=== PATIENT | female | born 1930 | race Caucasian/White ===

== ENCOUNTER 2016-10-24 00:20 | Inpatient (IN) | payer OTHER, MEDICAID ==
[~2016-10-24] VITALS: Ht 157.5 cm; Wt 72.0 kg
--- NOTE | 2016-10-24 00:30 | NUR ---
RECEIVED A 86 Y/O F BIB [facility] FROM [facility] FOR GTUBE DISLODGEMENT SINCE 1300. TEMPORARY KELLEY/TUBE NOTED AT THE GTUBE SITE. PATIENT HAS BILATERAL UPPER EXTREMITY CONTRACTURES AND UNABLE TO MOVE GURINDER LOWER EXTREMITIES. 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 PATIENT PLACED IN CM, PULSE OX, BP CUFF. PT IS INCONTINENT OF STOOL AND URINE. MSE DONE BY DR BURCH. WILL CONTINUE TO MONITOR FOR SAFETY
--- NOTE | 2016-10-24 00:51 | NUR ---
DR BURCH AT THE BEDSIDE.
[2016-10-24] MEDS ORDERED: ASPIR 8181 MG PO (01:17)
[2016-10-24] MEDS ORDERED: BACLOFEN10 MG PO (01:18)
[2016-10-24] MEDS ORDERED: CATAPRES T0.3 MG/21 TD (01:20)
[2016-10-24] MEDS ORDERED: METOPROLOL TART25 M1 GT (01:22)
[2016-10-24] MEDS ORDERED: COSOPT OCUMETER10 ML OU (01:22)
[2016-10-24] MEDS ORDERED: LANTUS SOLOS100 U/M1 SQ (01:23)
[2016-10-24] MEDS ORDERED: MYRBETRIQ25 MG PO (01:24)
[2016-10-24] MEDS ORDERED: NOR10 GT (01:26)
[2016-10-24] MEDS ORDERED: ULTRAM50 MG GT ×2 (01:27→01:28)
[2016-10-24] MEDS ORDERED: PEPCID20 MG GT (01:27)
[2016-10-24] MEDS ORDERED: ZINC-220220 MG GT (01:30)
[2016-10-24] MEDS ORDERED: APAP500 MG GT (01:30)
[2016-10-24] MEDS ORDERED: NITROSTAT0.4 MG SL (01:32)
[2016-10-24] MEDS ORDERED: NOVOLIN 70/3010 ML SC (01:33)
[2016-10-24 01:52] LABS: CALCIUM 8.8 mg/dL (8.5-10.1); CARBON DIOXIDE 30.6 mmol/L (21-32); CHLORIDE SERUM 120 mmol/L (98-107); GLUCOSE SERUM 169 mg/dL (74-106); SODIUM SERUM 157 mmol/L (136-145)
[2016-10-24 01:56] LABS: ALKALINE PHOSPHATASE 106 U/L (46-116); ALT/SGPT 11 U/L (14-59); AST/SGOT 15 U/L (15-37); BILIRUBIN TOTAL 0.7 mg/dL (0.20-1.00); PHOSPHOROUS 3.6 mg/dL (2.5-4.9); TOTAL PROTEIN, SERUM 7.6 g/dL (6.4-8.2)
[2016-10-24 02:00] LABS: ALBUMIN 2.1 g/dL (3.4-5.0); CHOLESTEROL 96 mg/dL (<200); HDL CHOLESTEROL 31 mg/dL (40-60)
[2016-10-24 02:03] LABS: PLATELET COUNT 245 x10^3mcL (130-400); RED CELL DISTRIBUTION WIDTH 12.5 % (11.5-14.5)
[2016-10-24 02:40] LABS: BAND NEUTROPHIL 2 % (0-10); METAMYELOCTE 2 % (0-2); MONOCYTE 4 % (0-7); PLATELET MORPHOLOGY LARGE PLATELET SEEN; SEGMENTED NEUTROPHILS 87 % (37-75); rbc morphology (normal/abnorm) NORMAL (NORMAL)
--- NOTE | 2016-10-24 02:52 | NUR ---
CENTRIFUGAL STATION OPERATOR DAVINA CALL TO REPORT WBC IS 20.1. DR SANCHEZ ,RESIDENT MD BRADSHAW. CENTRIFUGAL STATION OPERATOR AT THE BEDSIDE DRAWING BLOOD CULTURES.
--- NOTE | 2016-10-24 02:53 | NUR ---
REPORT WAS GIVEN TO MARS, PATIENT TRANSPORTED TO ROOM 241B.
[2016-10-24 03:36] LABS: MAGNESIUM 3.1 mg/dL (1.8-2.4)
[2016-10-24 03:47] LABS: FREE T4 1.3 ng/dL (0.76-1.46); FREE THYROXINE INDEX 3.1 ug/dL (1.4-4.5); T4(THYROXINE) 8.1 ug/dL (4.7-13.3)
[2016-10-24 03:54] LABS: CHOLESTEROL/HDL RATIO 3.3
--- NOTE | 2016-10-24 04:00 | NUR ---
RECEIVED FROM ER VIA [facility] FACILITATED TO ASSIGNED BED, ADMITTED FOR DISLODGED GTUBE, STOMA SITE NON ACCESSIBLE, NO BLEEDING TO THE SITE, PT AWAKE APHASIC CONTRACTED DOESNT FOLLOW COMMANDS, RESPOND TO PAINFUL STIMULI, NO S/SX OF PAIN OR DISCOMFORTS, DIM LUNGS SOUND BILAT BASES, SCATTERED WARTS TO BODY PARTS, COCCYX OPEN WOUND CLEANSE WITH NS PAT DRY AND COVER WITH NON ADHESIVE DRESSING, WOUND SITES PICTURED AND COPY PLACED TO CHART, IV ACCESS @ PATENT NON INFIL, CHANGED DIAPER AND GOOD PERICARE RENDERED, IV 1/2 NS STARTED PER MD'S ORDER, ADMISSION ASSESSMENT COMPLETED, CONT TO MONITOR.
[2016-10-24 04:14] VITALS: BP 136/58
[2016-10-24 04:58] LABS: T3 TOTAL 0.68 ng/mL
--- NOTE | 2016-10-24 05:42 | NUR ---
IV ATB HANGED ORDERED, PT ASLEEP NO S/SX OF PAIN OR DISCOMFORTS, TELE #1 INPLACED SR WITH DEPRESSED TWAVE IN THE MONITOR.
[2016-10-24 07:14] LABS: PLATELET COUNT 205 x10^3mcL (130-400); RED CELL DISTRIBUTION WIDTH 14.2 % (11.5-14.5)
[2016-10-24 07:34] LABS: CALCIUM 8.4 mg/dL (8.5-10.1); CHLORIDE SERUM 121 mmol/L (98-107); GLUCOSE SERUM 163 mg/dL (74-106); SODIUM SERUM 158 mmol/L (136-145)
[2016-10-24 09:37] VITALS: BP 129/57
--- NOTE | 2016-10-24 10:15 | NUR ---
INSERTED 16 ENGLISH KELLEY ORDERED, URINE YELLOW AND A LITTLE CLOUDY, NO FOUL ODOR. SENT UA AND URINE CULTURE TO LAB ORDERED. APPLIED AN AIR MATTRESS TO PT'S BED, SHE HAS A WOUND ON HER COCCYX. DID ORAL CARE.
[2016-10-24 10:18] LABS: microscopic required? YES; urine erythrocyte 3+ (NEGATIVE)
[2016-10-24 10:33] LABS: BAND NEUTROPHIL 3 % (0-10); BASOPHIL 0 % (0-2); METAMYELOCTE 2 % (0-2); MONOCYTE 4 % (0-7); SEGMENTED NEUTROPHILS 85 % (37-75)
--- NOTE | 2016-10-24 10:36 | NUR ---
NON VERBAL, BLIND, LENS OPAQUE. NPO FOR GT INSERTION TODAY. OBTUNDED. BILATERAL ARMS CONTRACTED. BILATERAL FOOT DROPP. LUNGS DIMINISHED BILATERALLY. O2 SAT ON 2L NC 97%. BS'S ACTIVE TIMES 4. TURNING Q 2 HOURS. AIR MATTRESS APPLIED. KELLEY CATH 16 LATVIAN INSERTED AT 1000 AND UA AND URC SENT TO LAB. TRACE EDEMA BLE. IV SITE LEFT HAND CDI, PATENT. NO SIGNS OF DISCOMFORT. MEDICAL ROUNDS OCCURED WITH DR BARTON AND THE MEDICINE TEAM AT 0745. THE PLAN TODAY IS TO GET A GT INSERTED AND WOUND DEBRIDEMENT.
[2016-10-24 16:02] VITALS: Ht 157.5 cm; Wt 72.0 kg
[2016-10-24 17:38] VITALS: BP 110/42
--- NOTE | 2016-10-24 18:21 | NUR ---
AAO, BUT NON VERBAL AND BLIND. TELE # 1 SR. TURNING Q 2 HOURS. KELLEY CATH DRAINED 200 ML URINE, INCONTINENT AND WAS CHANGED TWICE. DRESSING TO WOUND WITH OPTIFOAM, THERAHONEY AND ISLAND DRESSING. THE DEBRIDEMENT WAS DONE BY DR HERNANDEZ, AROUND THE EDGES OF THE WOUND, THE CENTER WAS VERY TOUGH AND UNABLE TO REMOVE. WOUND CULTURE WAS SENT. ON AIR MATTRESS. IV SITE TO LEFT HAND PATENT, CDI. PT'S DTR CAME TODAY AND SIGNED THE CONSENTS.
--- NOTE | 2016-10-24 20:19 | NUR ---
EYES CLOSED RESPONSIVE TO TACTILE STIMULUS, APHASIC, NO S/SX OF PAIN OR DISCOMFORTS, ZIGGY GTUBE FEEDING DIABETIC RESOURCE @ 30CC/HR NO GASTRIC RESIDUAL INCREASE FEEDING TO 35 CC/HR WITH THE GOAL TO TOLERATED 45CC/HR, CONTINUOUS FEEDING, HOB ELEVATED, GTUBE STOMA SITE WITH INTACT DRESSING, TELE #1 SR WITH DEPRESSED TWAVE INT THE MONITOR, HR @ 80'S, IVF 1/2 NS INFUSING @ 50CC/HR @ LH IV ACCESS PATENT NON INFIL, REPOSITIONED PT TO THE SIDE, PRESSURE REDUCTION TO COCCYX WOUND WITH LOW AIRLOSS MATTRESS, BLE OFF LOADED WITH PILLOW, BLE AND BUE WITH SEVERE CONTRACTION, 02 @ 2L/MIN NC SATURATING 98% NO DISTRESS DIM LUNGS SOUND AT THE BASES, CONTACT ISOL PREC, F/C INPLACED YELLOW URINE OUTPUT SHIFT ASSESSMENT DONE, CONT TO MONITOR.
[2016-10-24 21:29] VITALS: BP 113/47
--- NOTE | 2016-10-24 22:10 | NUR ---
NOTED PT MOANING RESTLESS WITH FACIAL GRIMACING NO DISTRESS HAS VERY DRY ORAL MUCOSA, ORAL CARE PROVIDED, TRAMADOL VIA GTUBE GIVEN PER PRN ORDER, REPOSITIONED TO COMFORT, CONT TO MONITOR.
--- NOTE | 2016-10-25 00:48 | NUR ---
PT ASLEEP NO MOANING, HOB ELEVATED, ZIGGY GTUBE FEEDING WELL, TITRATED FEEDING RATE WITH GOAL OF 45CC/HR, IVF INFUSING WELL REPOSITIONED ROUTINELY, CONT TO MONITOR.
[2016-10-25 05:05] VITALS: BP 135/48
--- NOTE | 2016-10-25 06:35 | NUR ---
TOLERATED GTUBE FEEDING, NO GASTRIC RESIDUAL NO NAUSEA OR VOMITING, TITRATED UP FEEDING RATE TO 40CC/HR GOAL OF 45CC/HR ZIGGY, HOB ELEVATED ON ASPIRATION PREC, REPOSITIONED TO COMFORT, GOOD ORAL CARE PROVIDED, ORAL MUCOSA DRY AND CRUSTED CONT TO MONITOR.
[2016-10-25 07:22] LABS: PLATELET COUNT 185 x10^3mcL (130-400); RED CELL DISTRIBUTION WIDTH 13.9 % (11.5-14.5)
[2016-10-25 07:24] LABS: BASOPHIL % 0 % (0-2)
[2016-10-25 07:35] LABS: CARBON DIOXIDE 31.9 mmol/L (21-32); CHLORIDE SERUM 119 mmol/L (98-107); CREATININE SERUM 0.9 mg/dL (0.6-1.0); GLUCOSE SERUM 183 mg/dL (74-106); SODIUM SERUM 155 mmol/L (136-145)
--- NOTE | 2016-10-25 08:00 | NUR ---
REEIVED PT IN BED APHASIC. RESP EVEN AND UNLABORED WITH DIMINISHED BREATHSOUNDS TO BILAT BASES, ON RT PROTOCOL. NO S/SX OF CP/PRESSURE. NO EDEMA NOTED, IVF AT 50ML/HR TO LT HAND. ABD SOFT, OBESE, NONTENDER WITH +BS. S/P GT PLACEMENT, DONE YESTERDAY WITH ONGOING GT FEEDING DIABETICSRESOURCE AT 40ML/HR WITH TARGET RATE OF 45ML/HR WITH H2O BOLUS OF 100ML/HR. KELLEY CATH TO GRAVITY WITH YELLOW URINE. PT IS BEDBOUND TOTAL CARE WITH CONTRACTURES TO BUE AND FOOT DROP TO BLE. PT TURNED Q2HRS WITH HEELS OFF LOADED, ON AIRLOSS MATTRESS. PT IS S/P DEBRIDEMENT OF WOUND TO COCCYX WITH DRSG IN PLACE CDI. WITH ECCHYMOSIS TO BUE. LT HEEL NOTED WITH DRY HEALING ULCER NO OPEN WOUND NOTED. LT FOOT WITH MULTIPLE SCATTERED DRY SCABS TO LOWER FOOT. RT HEEL WITH DARKEN DISCOLORATION NOTED. CONTACT ISO MAINTAINED. CALL LIGHT IN REACH, NEEDS ANTICIPATED. BED IN LOW POSITION WITH BEDRAILS X2 UP.
--- NOTE | 2016-10-25 08:00 | NUR ---
DR. HERNANDEZ MADE AWARE OR CRITICAL MICRO REPORTING OF +MRSA NARES. TO ORDER TX.
[2016-10-25 08:58] VITALS: BP 122/49
--- NOTE | 2016-10-25 13:00 | NUR ---
PT TOLERATING FEEDING NO RESIDUAL. FEEDING INCREASED TO 45ML/HR ORDERED. WILL CONT TO MONITOR.
[2016-10-25 14:45] VITALS: BP 127/45
--- NOTE | 2016-10-25 16:26 | NUR ---
DAUGHTER AT BEDSIDE UPDATED INQUIRED ABOUT D/C PLAN. DR. HERNANDEZ CALLED PER MD PLAN IS FOR PT TO BE D/C'D TOMORROW WITH PROPER WOUND CARE INSTRUCTIONS. DAUGHTER UPDATED ON POC, NO FURTHER CONCERNS AT THIS TIME.
[2016-10-25 17:40] VITALS: BP 129/52
--- NOTE | 2016-10-25 18:05 | NUR ---
PT RESTING COMFORTABLY AT THIS TIME. NO S/SX OF DISCOMFORT. IVF INFUSING. KELLEY CATH TO GRAVITY. PT REPOSITIONED Q2HRS WITH HEELS OFF LOADED. PT TOLERATED INCREASE TO FEEDING CURRENTLY AT 45ML/HR NO RESIDUAL NOTED. CALL LIGHT IN REACH NEEDS ANTICIPATED.
--- NOTE | 2016-10-25 19:26 | NUR ---
SHIFT REASSESSMENT DONE.PATIENT ON CONTACT ISOLATION,NARES,TOTAL CARE.O2 AT 2 LITERS MASK HUMIDIFIER.PATIENT CONTRACTED EXT.REPOSITIONED FOR COMFORT.TOTAL CARE.IVF AT 50 CC/ HOUR.L HAND.TELE 1 SR. HAS GT FEEDING,DIABETA,RESOURCE.TOLERATING WELL.KELLEY INTACT.MOANS AT TIMES.CALL LITE IN REACH.
[2016-10-25 21:03] VITALS: BP 141/67
--- NOTE | 2016-10-25 21:12 | NUR ---
ALL PM MEDS GIVEN THRU GT TUBE,ALSO EYEDROPS OU.ATB SCHEDULED.GT FEEING CONTINOUS,TOLERTING WELL.
--- NOTE | 2016-10-25 22:16 | NUR ---
PATIENT GIVEN DOYLE WILLIAMSON,ZEE WHEN YOU REPOSITIONED HER,GOOD SKIN CARE GIVEN,COCCYX DECUB.
[2016-10-25 22:21] VITALS: BP 133/49
--- NOTE | 2016-10-26 02:56 | NUR ---
REPOSITIONED FOR COMFORT,GT FEEDING CONTINOUS,TOLERATING WELL.
--- NOTE | 2016-10-26 05:15 | NUR ---
COMFORT,REPOSITIONED,ALL EXT REMAINS CONTRACTED.GOOD SKIN CARE PROVIDED.
[2016-10-26 06:22] VITALS: BP 148/50
[2016-10-26 07:19] LABS: PLATELET COUNT 176 x10^3mcL (130-400); RED CELL DISTRIBUTION WIDTH 14.3 % (11.5-14.5)
[2016-10-26 07:25] LABS: BASOPHIL % 0 % (0-2)
--- NOTE | 2016-10-26 07:40 | NUR ---
RECEIVED PT IN NO ACUTE DISTRESS. APHASIC. RESP EVEN AND UNLABORED ON 2L NC WITH HUMIDIFIER. RT PROTOCOL. NO PAIN NOTED AT THIS TIME. CONTRACTED TO BUE AND BLE. ON AIR MATTRESS. PT REPOSITIONED TO R SIDE. BLE OFFLOADED WITH PILLOWS. DRESSING TO COCCYX C/D/I. G TUBE IN PLACE WITH DIABETASOURCE INFUSING AT 45 ML/HR WITH FWF 100 ML EVERY 4 HOURS. HOB ELEVATED. IVF INFUSING. BED IN LOWEST POSITION, CALL LIGHT WITHIN REACH. WILL CONTINUE TO MONITOR.
[2016-10-26 07:50] LABS: CALCIUM 7.8 mg/dL (8.5-10.1); CARBON DIOXIDE 28.1 mmol/L (21-32); CHLORIDE SERUM 114 mmol/L (98-107); CREATININE SERUM 0.9 mg/dL (0.6-1.0); GLUCOSE SERUM 257 mg/dL (74-106); MAGNESIUM 2.6 mg/dL (1.8-2.4); PHOSPHOROUS 3.3 mg/dL (2.5-4.9); POTASSIUM SERUM 4.3 mmol/L (3.5-5.1); SODIUM SERUM 150 mmol/L (136-145)
[2016-10-26 10:39] VITALS: BP 165/50
--- NOTE | 2016-10-26 12:00 | NUR ---
PT HAD SOFT BM. CLEANED AND MADE COMFORTABLE. DRESSING TO SACRUM APPLIED ORDERED, PICTURE TAKEN AND PLACED IN CHART. DR. HERNANDEZ AWARE. PT REPOSITIONED TO L SIDE. WILL CONTINUE TO MONITOR.
[2016-10-26 13:45] VITALS: BP 141/45
--- NOTE | 2016-10-26 14:21 | NUR ---
Initial Nutrition Assessment Dx: Dislodged G-tube PMHx: CVA with dysphagia, bilateral upper contractures, bilateral lower paralysis, type 2 DM, HTN, GERD, glaucoma PSHx: G-tube placement Labs: Na 150 H, BG 257 H, BUN 35 H, Magnesium 2.6 H, WBC 12.5 H, H/H 10.7/33 L; (10/24) ALB 2.1 L, A1C 6 Meds: Colace, D50, humulin R, levemir, Pepcid, NS IV, theragran, zinc sulfate 220 mg daily (started 10/24), Zofran, heparin Current Nutrition Support: TF Diabetisource AC at 30 ml/hr, goal 45 ml/hr, Free Water Flush: 100 ml Q4h via G-tube TF Intakes: (10/24) 30 ml; (10/25) 895 ml; (10/26) 500 ml Residuals: (10/26) 0 ml I/O: 2735/903 (+1832 ml) Ht: 62", 5' 2". Wt: 158 lb, 72 kg. BMI: 29 kg/m2 (Overweight) IBW: 110 lb, 50 kg. %IBW: 144%. Adj BW: 122 lb, 55 kg. UBW: Daughters unsure Age: 86 Y/O F Food Allergies: None Skin: BLE heel discoloration, wound sacrum. Neil 12. No wound care noted in chart yet. Edema: None GI: Abd soft, round, obese. Active bowel sounds. Last BM x1 10/25. Soft BM. Wound Consult: G-tube site, coccyx, bilateral feet. Nursing Trigger: Poor PO intakes >3 days; Unable to ingest diet for age, TF/TPN. Pt found with G-tube dislodgement, stage 3 with outer eschar coccyx decubitus ulcer, r/o sepsis per doctor's notes. Pt is aphasic, daughters at bedside during RD visit. TF Diabetisource AC seen infusing at goal 45 ml/hr. RN reported no residuals, tolerating TF well, x1 soft BM today. Spoke with Dr. Davis regarding recommendations, doctor agreeable. Current TF regimen at goal 45 ml/hr provides 1296 kcal, 65 gm protein, 1483 ml free water daily. Meets 86% of estimated caloric needs and 87% of estimated protein needs. Problem with: N: None. V: None. D: None. C: None. Problems with: Chewing/Swallowing: Yes. Pt with G-tube Recent Weight Change: None. % Weight Change: N/A Vitamin/Supplement use: None Diet at Home (Pt is a resident at [facility]): TF Glucerna 1.2 at 35 ml/hr x20 hours + Pureed, GABRIELLA, NCS for oral gratification (Lunch only, 4 oz dessert) Physical Activity: Contracted BUE/BLE Education: Not appropriate due to pt non-verbal Estimated Nutritional Needs Based IBW 110 lb, 50 kg Energy: 0531-8165 kcal/day (30-35 kcal/kg for Wound Healing) Protein: 75-100 gm/day (1.5-2 gm/kg for Wound Healing) Fluids: 1500 ml/day (30 ml/kg for Wounds) or per doctor Nutrition Diagnosis Increase nutritional needs related to altered skin integrity as evidenced by pt with stage 3 with outer eschar coccyx decubitus ulcer Intervention 1. Continue TF Diabetisource AC at goal 45 ml/hr, Free Water Flush: 100 ml Q4h via G-tube per doctor. 2. Recommend Prosource BID (120 kcal, 30 gm protein) for optimal wound healing. Prosource BID and current TF regimen would provide a total of 1416 kcal (94% of kcal goal), 95 gm protein (100% of protein goal). 3. Recommend Vitamin C 500 mg BID x10 days for optimal wound healing. 4. Continue Zinc Sulfate 220 mg daily x8 days for optimal wound healing. 5. Adjust insulin regimen. Note BG >200 mg/dL. Monitor/Evaluate Goal: TF intakes to meet at least 80% of estimated needs with tolerance; BG <200 mg/dL Monitor: TF intakes/tolerance, labs, skin integrity, GI function, weights F/U in 3-5 days as MODERATE risk (10/29-10/31)
[2016-10-26 17:42] VITALS: BP 138/49
--- NOTE | 2016-10-26 18:21 | NUR ---
PT RESTING IN BED. NO ACUTE DISTRESS. RESP EVEN AND UNLABORED ON 2L SIMPLE MASK WITH HUMIDIFIER. NO SOB NOTED. NO PAIN NOTED. TURNED TO L SIDE. IVF INFUSING. TF INFUSING AT 45 ML/HR WITH PROSOURCE GIVEN ORDERED. BILAT HEELS OFFLOADED. HOB ELEVATED. BED IN LOWEST POSITION, CALL LIGHT WITHIN REACH. WILL ENDORSE TO INCOMING SHIFT.
--- NOTE | 2016-10-26 20:00 | NUR ---
RECEIVED PT IN BED SLEEPING BUT EASILY AROUSABLE. PT IS NON VERBAL. BLIND. PT HAS A SIMPLE MASK WITH 2L O2. RT PROTOCAL NOTED. TELE 1 SHOWS NSR. DOES NOT APPEAR TO BE IN ANY PAIN. BS ACTIVE IN ALL FOUR QUADS. GTUBE INTACT, INFUSING DIABETIC SOURCEAT 45ML/HR WITH FWF 100ML Q4H. TOLERATING WELL. KELLEY DRAINING TO GRAVITY. BUE CONTRACTED, BLE WITH FOOT DROP, ELEVATED WITH PILLOWS. PT ON AIR MATTRESS, REPOSITION Q2H. 1/2 NS AT 50ML/HR TO LEFT HAND, SITE INTACT. SHIFT ASSESSMENT COMPLETED. CALL LIGHT WITHIN REACH. BED IS IN LOWEST POSITION. WILL CONTINUE TO MONITOR CLOSELY.
--- NOTE | 2016-10-26 20:50 | NUR ---
REPOSITIONED PT AT THIS TIME, WOUND TO SACRAL AREA IS CDI.
[2016-10-26 21:39] VITALS: BP 116/35
--- NOTE | 2016-10-26 21:40 | NUR ---
TEMP 100.4, TYLENOL VIA GTUBE GIVEN AT THIS TIME.
--- NOTE | 2016-10-26 23:25 | NUR ---
PT TEMP 98.1, REPOSITIONED FOR COMFORT. CALL LIGHT WITHIN REACH. WILL CONTINUE TO MONITOR CLOSELY.
--- NOTE | 2016-10-27 03:30 | NUR ---
REPOSITIONED THROUGH OUT SHIFT. PT SLEEPING IN INTERVALS. IVF ONGOING. GT FEEDING INFUSING AT 45ML/HR. PT REMAINS IN CONTACT ISOLATION THROUGH OUT SHIFT. ORAL CARE PROVIDED. WILL CONTINUE TO MONITOR CLOSELY.
[2016-10-27 05:35] VITALS: BP 135/76
[2016-10-27 06:25] LABS: PLATELET COUNT 170 x10^3mcL (130-400); RED CELL DISTRIBUTION WIDTH 13.9 % (11.5-14.5)
--- NOTE | 2016-10-27 06:26 | NUR ---
PT SLEPT ON AND OFF THROUGH OUT THE NIGHT. REPOSITIONED Q2H. PT TELE MONITOR D/C'D, MEDSURG PT NOW. AM CARE PROVIDED. ALL NEEDS TENDED TO. WILL ENDORSE TO INCOMING SHIFT.
[2016-10-27 06:27] LABS: CALCIUM 7.7 mg/dL (8.5-10.1); CARBON DIOXIDE 31.1 mmol/L (21-32); CHLORIDE SERUM 110 mmol/L (98-107); CREATININE SERUM 0.9 mg/dL (0.6-1.0); GLUCOSE SERUM 169 mg/dL (74-106); MAGNESIUM 2.5 mg/dL (1.8-2.4); PHOSPHOROUS 2.8 mg/dL (2.5-4.9); POTASSIUM SERUM 4.3 mmol/L (3.5-5.1); SODIUM SERUM 146 mmol/L (136-145)
[2016-10-27 07:23] LABS: BASOPHIL % 0 % (0-2)
--- NOTE | 2016-10-27 08:15 | NUR ---
PATIENT RESTING IN BED. STATUS POST G-TUBE PLACEMENT, 10/24/2016. IV FLUIDS INFUSING WELL. CALL LIGHT WITHIN REACH. SACRAL WOUND DRESSING CHANGED THIS MORNING. TOTAL CARE RENDERED. REPOSITIONED EVERY TWO HOURS. CONTINUE AIR MATTRESS. CONTINUE G TUBE FEEDING TOLERATING WELL. RESIDUAL 25CC OBTAINED AND PUSHED BACK IN. HOB ELEVATED AT ALL TIMES. WILL CONTINUE PLAN OF CARE. NO ACUTE DISTRESS NOTED.
--- NOTE | 2016-10-27 08:15 | NUR ---
DR ERAZO MADE ROUNDS WITH OTHER MEDICAL STAFF THIS MORNIING. UPDATED PLAN OF CARE.
[2016-10-27 09:14] VITALS: BP 123/60
[2016-10-27 17:08] VITALS: BP 139/52
--- NOTE | 2016-10-27 18:00 | NUR ---
TURN PT. Q 2 HRS FOR COMFORT.MOANS DURING MOVEMENT,NON VERBAL.CONT. GT FEEDING ORDERED AND CONT. HOB ELEVATED AT ALL TIMES.GT. FEEDING ZIGGY. WELL.NO ACUTE DISTRESS NOTED.
--- NOTE | 2016-10-27 20:00 | NUR ---
PATIENT ASLEEP IN BED BUT EASILY AROUSABLE TO NAME CALLING, NONVERBAL. RESPIRATION EVEN AND UNLABORED, ON O2 2L PER SIMPLE MASK. ONGOING 1/2 NS AT 50 CC/HR INFUSING WELL AT THE LEFT HAND. GASTROSTOMY TUBE- DIABETASOURCE AT 45 CC/HR AND FREE WATER FLUSH AT 100 CC/HR. KELLEY CATHETER TO GRAVITY DRAINING YELLOW COLORED URINE. GENERALIZED WEAKNESS, CONTRACTED BUE, BILAT FOOT DROP. SACRAL ULCER COVERED WITH DRY AND INTACT DRESSING, LEFT HEEL DRY/HEALING ULCER, BILAT HEEL DARK DISCOLORATION. ON CONTACT ISOLATION FOR MRSA NARES. WILL CONTINUE TO MONITOR.
[2016-10-27 21:28] VITALS: BP 126/42
[2016-10-28 05:55] VITALS: BP 148/68
[2016-10-28 06:31] LABS: CALCIUM 7.7 mg/dL (8.5-10.1); CARBON DIOXIDE 27.6 mmol/L (21-32); CHLORIDE SERUM 107 mmol/L (98-107); CREATININE SERUM 0.8 mg/dL (0.6-1.0); GLUCOSE SERUM 168 mg/dL (74-106); MAGNESIUM 2.5 mg/dL (1.8-2.4); PHOSPHOROUS 2.2 mg/dL (2.5-4.9); POTASSIUM SERUM 4.3 mmol/L (3.5-5.1); SODIUM SERUM 142 mmol/L (136-145)
--- NOTE | 2016-10-28 06:40 | NUR ---
PATIENT MOANS TO TACTILE STIMULI. RESPIRATION EVEN AND UNLABORED, ON 2L SIMPLE MASK. IV SITE NO SIGN OF INFILTRATION. GASTROSTOMY TUBE PATENT AND INTACT. TOLERATING TUBE FEEDING. KELLEY CATHETER PATENT AND INTACT. TURNED FROM SIDE TO SIDE. KEPT CLEAN AND DRY. MAINTAINED ON CONTACT ISOLATION.
[2016-10-28 06:47] LABS: PLATELET COUNT 236 x10^3mcL (130-400); RED CELL DISTRIBUTION WIDTH 13.7 % (11.5-14.5)
--- NOTE | 2016-10-28 07:30 | NUR ---
PT AWAKE NONE VERBAL.PT ALSO BLIND.NO SIGNS OF PAIN/DISCOMFORT.LUNG SOUND DIM ON THE BASES.ON SIMPLE MASK AT 2 L.ALSO ON G-TUBE FEEDING DIABETIC SOURCE AT 45 ML/HR RESIDUAL=0.ON ASPIRATION PRECAUTION ,HOB AT 30 DEG ANGLE.Q 2 HOUR TURN IMPLETED.ON CONTACT ISOLATION FOR MRSA OF THE NARES DAY #4 TREATMENT.FREQUENT CHECKS IMPLEMENTED .WILL CONTINUE TO MONITOR.
[2016-10-28 08:23] LABS: BAND NEUTROPHIL 6 % (0-10); BASOPHIL 0 % (0-2); MONOCYTE 3 % (0-7); SEGMENTED NEUTROPHILS 85 % (37-75)
[2016-10-28 08:25] LABS: rbc morphology (normal/abnorm) ABNORMAL (NORMAL)
[2016-10-28 08:26] LABS: PLATELET MORPHOLOGY LARGE PLATELET SEEN
[2016-10-28 09:40] VITALS: BP 125/52
--- NOTE | 2016-10-28 12:45 | NUR ---
WOUND CARE DONE ORDERED.CHANGED DRESSING AND TOOK PICTURES FOR DISCHARGE.
--- NOTE | 2016-10-28 16:55 | NUR ---
INFORMED BY CHARGE NURSE THAT PT WILL BE TRANSFERRED TODAY.HOSPICE WILL ARRANGE THE TRANSFER.ALSO INFORMED .
[2016-10-28] MEDS ORDERED: BACDS GT (17:06)
[2016-10-28] MEDS ORDERED: AMPICILLIN500 MG PO (17:27)
[2016-10-28 17:58] VITALS: BP 125/52
[2016-10-28] MEDS ORDERED: METOPROLOL TART25 M1 GT (17:59)
[2016-10-28] MEDS ORDERED: NOR10 GT (18:00)
[2016-10-28] MEDS ORDERED: ECO81 PO (18:02)
[2016-10-28] MEDS ORDERED: ULT50 GT (18:04)
[2016-10-28] MEDS ORDERED: ZINC SULFATE220 MG GT (18:05)
[2016-10-28] MEDS ORDERED: TYL650L GT (18:05)
[2016-10-28] MEDS ORDERED: MVIL GT (18:06)
[2016-10-28] MEDS ORDERED: VITC GT (18:07)
[2016-10-28] MEDS ORDERED: HIBICLENS118 ML TOP (18:08)
[2016-10-28] MEDS ORDERED: LEVEMIR100 U/M1 SQ (18:08)
[2016-10-28] MEDS ORDERED: BACO TOP (18:08)
[2016-10-28] MEDS ORDERED: LAC GT (18:10)
[2016-10-28] MEDS ORDERED: PEP20 GT (18:11)
[2016-10-28] MEDS ORDERED: LIPI20 PO (18:12)
[2016-10-28] MEDS ORDERED: DORZOLAMIDE HYD10 M2 OU (18:12)
[2016-10-28] MEDS ORDERED: LIO10 PO (18:14)
[2016-10-28] MEDS ORDERED: TERBINAFINE250 MG PO (18:15)
--- NOTE | 2016-10-28 18:20 | NUR ---
PT WILL BE TRANSFERRED BACK TO [facility] WITH HOSPICE RM.20B.REPORT GIVEN TO DEREK.INFORMED HIM OF INCOME TAX ADJUSTER TIME AT 1999.
[2016-10-28] MEDS ORDERED: NPHOS GT (18:41)
--- NOTE | 2016-10-28 19:52 | NUR ---
REC'D TELE PHONE CONSENT FOR D/C AND TRANSFER TO [facility]. SPOKE WITH ROSALIO MULLIGAN AND VERIFIED WITH 2ND RN ARNOLDO.
[2016-10-28 20:00] VITALS: BP 120/70
--- NOTE | 2016-10-28 20:00 | NUR ---
RECIEVED WITH HOB ELEVATED. NON-VERBAL/RESPONSIVE TO TACTILE STIMULI/PAINFUL STIMULI. FOR DISCHARGE TODAY TO SNF, REPORT GIVEN TO ABILIO REED AT 1845 BY AM ABILIO DUFF AND WILL BE GOING TO ROOM 20 AT [facility]. WILL BE PICKED BY AMBULANCE AT 2029.
--- NOTE | 2016-10-28 20:38 | NUR ---
DISCHARGED TO [facility] VIA AMBULANCE IN STABLE CONDITION. IV ACCESS REMOBVED PER MDS ORDER. PRESSURE DRESSING APPLIED. NO ACTIVE BLLEDING. KELLEY CATH INTACT O BSD WITH YELLOW URINE OUTPUT OF 500CC. VS TAKEN T=98.6, R=20, HR=76/MIN, XA=233/70. NO S/S OF ACUTE DISTRESS.
== END 2016-10-28 20:40 | DRG 853 ==
LOC: ED 00:20 → DU 01:52 → MU 01:52 → DU 03:30 → MU 10-27 06:20
PROVIDERS: Emergency Medicine; Internal Medicine Gastroenterology; ADMIT Family Medicine
PROC: 0JB90ZZ Excision of Buttock Subcutaneous Tissue and Fascia, Open Approach (ICD-10-PCS; principal; 2016-10-24 14:00)
PROC: 0D20XUZ Change Feeding Device in Upper Intestinal Tract, External Approach (ICD-10-PCS; 2016-10-25)
DX: A41.9 Sepsis, unspecified organism (principal); N17.0 Acute kidney failure with tubular necrosis; E43 Unspecified severe protein-calorie malnutrition; L89.153 Pressure ulcer of sacral region, stage 3; Z43.1 Encounter for attention to gastrostomy; E87.0 Hyperosmolality and hypernatremia; D68.69 Other thrombophilia; E11.65 Type 2 diabetes mellitus with hyperglycemia; E11.51 Type 2 diabetes mellitus with diabetic peripheral angiopathy without gangrene; R65.20 Severe sepsis without septic shock; K21.9 Gastro-esophageal reflux disease without esophagitis; I67.2 Cerebral atherosclerosis; F01.50 Vascular dementia, unspecified severity, without behavioral disturbance, psychotic disturbance, mood disturbance, and anxiety; B35.1 Tinea unguium; L89.612 Pressure ulcer of right heel, stage 2; E86.0 Dehydration; E83.41 Hypermagnesemia; E83.39 Other disorders of phosphorus metabolism; I69.391 Dysphagia following cerebral infarction; R13.10 Dysphagia, unspecified; H40.9 Unspecified glaucoma; Z66 Do not resuscitate; Z74.01 Bed confinement status; Z79.4 Long term (current) use of insulin; I69.365 Other paralytic syndrome following cerebral infarction, bilateral; Z68.29 Body mass index [BMI] 29.0-29.9, adult
CPT/HCPCS: 43760; 82962; 83880; 84439; J0295; J1644; J1815; J1956; J2001; J3490; J7030; Q0092; Q9963